=== PATIENT | male | born 1945 | race Caucasian/White ===

== ENCOUNTER → 2024-01-30 | Outpatient (CLI) | payer OTHER, MEDICARE ==
[2024-01-30 19:18] LABS: BILIRUBIN,URINE NEGATIVE (NEGATIVE); LEUKOCYTE ESTERASE ,URINE NEGATIVE (NEGATIVE); NITRATE,URINE NEGATIVE (NEGATIVE); UROBILINOGEN,URINE 0.2 E.U./dL (0.2)
[2024-01-30 19:23] LABS: APPEARANCE,URINE CLEAR; UA COLOR YELLOW
[2024-01-30 19:24] LABS: HYALINE CASTS, URINE FEW (NONE SEEN)
== END | disposition home or self-care (01) ==
LOC: NPLAB 18:58
PROVIDERS: ATTEND Internal Medicine
DX: R82.90 Unspecified abnormal findings in urine (principal)
CPT/HCPCS: 81001; 87086